=== PATIENT | female | born 1990 | race Caucasian/White ===

== ENCOUNTER 2023-09-03 07:47 | Inpatient (IN) | payer SELFPAY ==
[~2023-09-03] VITALS: Ht 167.6 cm; Wt 81.0 kg
[2023-09-03 08:32] LABS: Basophils # (auto) 0 10 ^3/uL (0-0.2); Basophils % (auto) 0.2 % (0.0-2.0); Eosinophils # (auto) 0 10 ^3/uL (0-0.8); Hemoglobin 13.6 g/dL (12.2-16.2); Lymphocytes # (auto) 0.3 10 ^3/uL (0.4-5.4); Lymphocytes % (auto) 2.9 % (10.0-50.0); Mean Corpuscular Hemoglobin 31.4 pg (28.0-32.0); Mean Corpuscular Volume 89.8 fL (80.0-100.0); Monocytes # (auto) 0.9 10 ^3/uL (0-1.3); Monocytes % (auto) 7.5 % (0.0-12.0); Neutrophils # (auto) 10.4 10 ^3/uL (1.6-8.6); Neutrophils % (auto) 89.4 % (37.0-80.0); Red Blood Cells 4.34 10^6/uL (4.0-5.20); Red Cell Distribution Width 13.2 % (11.8-14.3); White Blood Cell 11.6 10^3/uL (4.4-10.8)
[2023-09-03] MEDS ORDERED: ONDANSETRON HCL 4 MG/2 ML VIAL IV ONE (08:45)
[2023-09-03] MEDS ORDERED: SODIUM CHLORIDE 0.9% 1,000 ML IV ONE ×2 (08:45)
[2023-09-03 08:59] LABS: Alanine Aminotransferase 37 U/L (7-40); Alkaline Phosphatase 57 U/L (46-116); Anion Gap 8 (5-15); Aspartate Aminotransferase 40 U/L (13-40); Bilirubin, Total 1.7 mg/dL (0.2-1.0); Blood Urea Nitrogen 11 mg/dL (9-23); Calcium 8.8 mg/dL (8.5-10.1); Carbon Dioxide 27 mmol/L (20-30); Chloride 99 mmol/L (98-107); Glucose 117 mg/dL (74-106); Potassium 3.4 mmol/L (3.5-5.1); Sodium 134 mmol/L (136-145); Total Protein 6.8 g/dL (5.7-8.2)
[2023-09-03] MEDS ORDERED: DICYCLOMINE HCL (10MG/ML) 2 ML AMPULE IM ONE (09:45)
[2023-09-03] MEDS ORDERED: POTASSIUM EFFERVESENT TAB 25 MEQ PO ONE (10:15)
[2023-09-03] MEDS: SODIUM CHLORIDE 0.9% 1,000 ML IV SCH ×2 (10:24→18:35)
[2023-09-03] MEDS: cefTRIAXone 1GM/50ML D5W 50 ML IV SCH (10:40)
[2023-09-03 10:49] VITALS: PULSE 103; RESP 19; O2SAT 97
[2023-09-03] MEDS: DICYCLOMINE HCL 10 MG CAP PO SCH ×3 (12:44→23:14)
[2023-09-03] MEDS: ONDANSETRON HCL 4 MG/2 ML VIAL IV PRN ×2 (13:17→19:48)
[2023-09-03 13:39] LABS: Urine Bacteria NONE SEEN /hpf (None Seen); Urine Blood 3+ /uL (Negative); Urine Clarity HAZY (Clear); Urine Color Yellow (Yellow); Urine Mucus FEW (None Seen); Urine Protein, UAD 3+ (Negative); Urine Specific Gravity 1.029 (1.001-1.035); Urine WBC 105 /hpf (0 - 5); Urine pH 6.5 (5.0-8.0)
[2023-09-03] MEDS: metroNIDAZOLE 500MG/100ML 100 ML IV SCH ×2 (13:46→23:13)
[2023-09-03 14:03] LABS: Amphetamine Screen, Urine Neg (NEGATIVE); Barbiturate Scree,Urine Neg (NEGATIVE); Benzodiazephine Screen, Urine Neg (NEGATIVE); Cannabinoid Screen, Urine Neg (NEGATIVE); Cocaine Screen, Urine Neg (NEGATIVE); Opiate Scree,Urine Neg (NEGATIVE); Phencyclidine Screen, Urine Neg (NEGATIVE)
[2023-09-03 14:28] LABS: COVID19 ANTIGEN SOFIA FIA NEGATIVE (NEGATIVE); Rapid Influenza A Negative (Negative); Rapid Influenza B Negative (Negative)
[2023-09-03] MEDS ORDERED: KETOROLAC TROMETH 30 MG/ML 1ML VIAL IV STA (19:33)
[2023-09-03] MEDS: MORPHINE SULFATE INJ 2 MG/ml SYRG IV PRN (19:49)
[2023-09-03] MEDS ORDERED: ACETAMINOPHEN 325 MG TAB PO ONE (19:53)
[2023-09-03 19:57] VITALS: PULSE 108; RESP 18; O2SAT 100
[2023-09-03] MEDS ORDERED: ACETAMINOPHEN 325 MG TAB PO PRN (20:00)
[2023-09-03 21:47] VITALS: BP 106/64; PULSE 92; RESP 18; TEMP 99.8; O2SAT 98
[2023-09-03 22:00] VITALS: BP 106/64; PULSE 92; RESP 18; TEMP 99.8; O2SAT 98
[2023-09-03] MEDS ORDERED: BUPR200T2 PO (23:27)
[2023-09-04] VITALS (9 sets, daily range): BP systolic 107–123; BP diastolic 61–68; PULSE 73–90; RESP 17–18; TEMP 99.1–100.1; O2SAT 97–100
[2023-09-04] MEDS: MORPHINE SULFATE INJ 2 MG/ml SYRG IV PRN ×3 (00:37→13:15)
[2023-09-04] MEDS: ONDANSETRON HCL 4 MG/2 ML VIAL IV PRN ×3 (00:38→13:14)
[2023-09-04] MEDS: PANTOPRAZOLE 40 MG/10 ML VIAL INJ IV SCH ×2 (01:26→09:02)
[2023-09-04] MEDS: SODIUM CHLORIDE 0.9% 1,000 ML IV SCH ×2 (02:55→08:59)
[2023-09-04] MEDS: metroNIDAZOLE 500MG/100ML 100 ML IV SCH ×3 (05:46→21:30)
[2023-09-04] MEDS: DICYCLOMINE HCL 10 MG CAP PO SCH ×4 (05:46→21:28)
[2023-09-04 06:02] LABS: Alanine Aminotransferase 27 U/L (7-40); Alkaline Phosphatase 51 U/L (46-116); Anion Gap 10 (5-15); Blood Urea Nitrogen 8 mg/dL (9-23); Calcium 8.2 mg/dL (8.5-10.1); Carbon Dioxide 24 mmol/L (20-30); Chloride 101 mmol/L (98-107); Glucose 99 mg/dL (74-106); Potassium 3.3 mmol/L (3.5-5.1); Sodium 135 mmol/L (136-145)
[2023-09-04 06:03] LABS: Albumin 3.3 g/dL (3.2-4.8); Aspartate Aminotransferase 28 U/L (13-40); Bilirubin, Total 0.6 mg/dL (0.2-1.0); Total Protein 5.6 g/dL (5.7-8.2)
[2023-09-04 06:14] LABS: Basophils # (auto) 0 10 ^3/uL (0-0.2); Basophils % (auto) 0.1 % (0.0-2.0); Eosinophils # (auto) 0 10 ^3/uL (0-0.8); Hematocrit 36.5 % (36.0-46.0); Hemoglobin 12.3 g/dL (12.2-16.2); Lymphocytes # (auto) 0.7 10 ^3/uL (0.4-5.4); Lymphocytes % (auto) 6.1 % (10.0-50.0); Mean Corpuscular Hemoglobin 30.6 pg (28.0-32.0); Mean Corpuscular Hgb Conc. 33.7 g/dL (32.0-36.0); Mean Corpuscular Volume 90.7 fL (80.0-100.0); Monocytes % (auto) 8.9 % (0.0-12.0); Neutrophils # (auto) 9.9 10 ^3/uL (1.6-8.6); Neutrophils % (auto) 84.9 % (37.0-80.0); Red Blood Cells 4.02 10^6/uL (4.0-5.20); Red Cell Distribution Width 13.3 % (11.8-14.3); White Blood Cell 11.7 10^3/uL (4.4-10.8)
[2023-09-04] MEDS: cefTRIAXone 1GM/50ML D5W 50 ML IV SCH (09:01)
[2023-09-04] MEDS: TAMSULOSIN HYDROCHLORIDE 0.4 MG CAP PO SCH (17:40)
[2023-09-04] MEDS: PROMETHAZINE HCL 25 MG/ML 1ML IV PRN (17:43)
[2023-09-05] MEDS: PROMETHAZINE HCL 25 MG/ML 1ML IV PRN ×3 (00:08→22:09)
[2023-09-05] MEDS: MORPHINE SULFATE INJ 2 MG/ml SYRG IV PRN ×2 (00:13→22:10)
[2023-09-05] MEDS: SODIUM CHLORIDE 0.9% 1,000 ML IV SCH ×4 (00:19→20:35)
[2023-09-05] MEDS: metroNIDAZOLE 500MG/100ML 100 ML IV SCH ×3 (06:38→22:09)
[2023-09-05] MEDS: DICYCLOMINE HCL 10 MG CAP PO SCH ×4 (06:41→22:09)
[2023-09-05 09:00] VITALS: BP 124/69; PULSE 79; RESP 18; TEMP 98.9; O2SAT 92
[2023-09-05] MEDS: PANTOPRAZOLE 40 MG/10 ML VIAL INJ IV SCH (10:48)
[2023-09-05] MEDS: cefTRIAXone 1GM/50ML D5W 50 ML IV SCH (10:48)
[2023-09-05 13:00] VITALS: BP 122/75; PULSE 78; RESP 18; TEMP 99.3; O2SAT 96
[2023-09-05 17:00] VITALS: BP 118/72; PULSE 74; RESP 21; TEMP 99.3; O2SAT 96
[2023-09-05] MEDS: TAMSULOSIN HYDROCHLORIDE 0.4 MG CAP PO SCH (17:50)
[2023-09-05 22:00] VITALS: BP 123/74; PULSE 65; RESP 16; TEMP 99.4; O2SAT 97
[2023-09-06] MEDS: PROMETHAZINE HCL 25 MG/ML 1ML IV PRN ×2 (04:00→12:42)
[2023-09-06 05:00] VITALS: BP 126/63; PULSE 67; RESP 18; TEMP 98.6; O2SAT 96
[2023-09-06] MEDS: DICYCLOMINE HCL 10 MG CAP PO SCH ×4 (05:34→21:30)
[2023-09-06] MEDS: metroNIDAZOLE 500MG/100ML 100 ML IV SCH ×2 (05:35→15:30)
[2023-09-06] MEDS: SODIUM CHLORIDE 0.9% 1,000 ML IV SCH ×3 (05:39→21:35)
[2023-09-06 08:05] VITALS: BP 111/70; PULSE 62; RESP 18; TEMP 98.1; O2SAT 96
[2023-09-06] MEDS: KETOROLAC TROMETH 30 MG/ML 1ML VIAL IV PRN ×2 (10:01→21:33)
[2023-09-06] MEDS: cefTRIAXone 1GM/50ML D5W 50 ML IV SCH (10:01)
[2023-09-06] MEDS: PANTOPRAZOLE 40 MG/10 ML VIAL INJ IV SCH (10:01)
[2023-09-06 12:14] VITALS: BP 103/64; PULSE 63; RESP 18; TEMP 98.9; O2SAT 96
[2023-09-06 16:05] VITALS: BP 125/64; PULSE 74; RESP 18; TEMP 97.9; O2SAT 97
[2023-09-06] MEDS: TAMSULOSIN HYDROCHLORIDE 0.4 MG CAP PO SCH (18:02)
[2023-09-06 22:00] VITALS: BP 116/61; PULSE 57; RESP 16; TEMP 98.8; O2SAT 99
[2023-09-07] MEDS: SODIUM CHLORIDE 0.9% 1,000 ML IV SCH ×3 (01:58→22:35)
[2023-09-07 05:00] VITALS: BP 116/72; PULSE 62; RESP 16; TEMP 98.2; O2SAT 95
[2023-09-07] MEDS: DICYCLOMINE HCL 10 MG CAP PO SCH ×4 (06:00→21:19)
[2023-09-07 08:00] VITALS: BP 105/81; PULSE 58; RESP 16; TEMP 97.9; O2SAT 97
[2023-09-07] MEDS: cefTRIAXone 1GM/50ML D5W 50 ML IV SCH (09:09)
[2023-09-07] MEDS: PANTOPRAZOLE 40 MG/10 ML VIAL INJ IV SCH (09:09)
[2023-09-07 12:00] VITALS: BP 117/66; PULSE 59; RESP 16; TEMP 97.7; O2SAT 98
[2023-09-07] MEDS ORDERED: LIDOCAINE VISCOUS 2% 15ML UD ONE (13:00)
[2023-09-07] MEDS ORDERED: SODIUM CHLORIDE LOCK 10 ML ONE (13:00)
[2023-09-07] MEDS ORDERED: diphenhdrAMINE HCL 50 MG/1 ML VL ONE (13:00)
[2023-09-07 17:22] VITALS: PULSE 79; RESP 23; O2SAT 98
[2023-09-07] MEDS: fentaNYL CITRATE 100 MCG/2 ML VL ONE ×2 (17:26→17:29)
[2023-09-07] MEDS: MIDAZOLAM HCL 5 MG/ML-1ML VIAL ONE ×2 (17:26→17:29)
[2023-09-07 17:46] VITALS: PULSE 67; RESP 15; O2SAT 100
[2023-09-07] MEDS: TAMSULOSIN HYDROCHLORIDE 0.4 MG CAP PO SCH (18:00)
[2023-09-07 22:00] VITALS: BP 103/61; PULSE 89; RESP 18; TEMP 97.7; O2SAT 96
[2023-09-08] VITALS (8 sets, daily range): BP systolic 107–119; BP diastolic 58–75; PULSE 62–92; RESP 16–18; TEMP 98.3–99.1; O2SAT 96–98
[2023-09-08] MEDS: DICYCLOMINE HCL 10 MG CAP PO SCH ×4 (05:44→21:14)
[2023-09-08] MEDS: SODIUM CHLORIDE 0.9% 1,000 ML IV SCH ×3 (05:53→23:42)
[2023-09-08] MEDS: cefTRIAXone 1GM/50ML D5W 50 ML IV SCH (09:08)
[2023-09-08] MEDS: PANTOPRAZOLE 40 MG/10 ML VIAL INJ IV SCH (09:08)
[2023-09-08 14:02] LABS: INR 1.16 (0.9-1.15); Partial Thromboplastin Time 25.8 SEC (24.5-34.5); Prothrombin Time 12.1 sec (9.3-11.8)
[2023-09-08] MEDS: TAMSULOSIN HYDROCHLORIDE 0.4 MG CAP PO SCH ×2 (17:49→17:57)
[2023-09-09] VITALS (8 sets, daily range): BP systolic 115–121; BP diastolic 66–82; PULSE 70–78; RESP 14–22; TEMP 97.9–98.9; O2SAT 93–99
[2023-09-09] MEDS: DICYCLOMINE HCL 10 MG CAP PO SCH ×4 (05:24→21:08)
[2023-09-09] MEDS: PROMETHAZINE HCL 25 MG/ML 1ML IV PRN (08:35)
[2023-09-09] MEDS: cefTRIAXone 1GM/50ML D5W 50 ML IV SCH (08:38)
[2023-09-09] MEDS: PANTOPRAZOLE 40 MG/10 ML VIAL INJ IV SCH (08:38)
[2023-09-09] MEDS: SODIUM CHLORIDE 0.9% 1,000 ML IV SCH ×2 (08:47→13:35)
[2023-09-09] MEDS: metroNIDAZOLE 500MG/100ML 100 ML IV SCH ×2 (13:35→21:08)
[2023-09-10] VITALS (7 sets, daily range): BP systolic 108–125; BP diastolic 63–79; PULSE 63–118; RESP 13–22; TEMP 97.5–98.7; O2SAT 94–98
[2023-09-10] MEDS: SODIUM CHLORIDE 0.9% 1,000 ML IV SCH ×3 (01:48→17:15)
[2023-09-10] MEDS: metroNIDAZOLE 500MG/100ML 100 ML IV SCH ×3 (05:06→21:20)
[2023-09-10] MEDS: DICYCLOMINE HCL 10 MG CAP PO SCH ×4 (05:10→21:20)
[2023-09-10] MEDS: cefTRIAXone 1GM/50ML D5W 50 ML IV SCH (09:21)
[2023-09-10] MEDS ORDERED: FAMOTIDINE (10MG/ML) 2ML VL IV ONE ×2 (09:41→10:26)
[2023-09-10] MEDS ORDERED: SUCCINYLCHOLINE CHLORIDE 20 MG/ML 10ML VIAL IV ONE (09:44)
[2023-09-10] MEDS ORDERED: fentaNYL CITRATE 100 MCG/2 ML VL ONE ×2 (09:45→10:57)
[2023-09-10] MEDS ORDERED: HYDROmorphone HCL 2 MG/ML VL/or syr ONE (09:45)
[2023-09-10] MEDS ORDERED: DexAMETHasone SOD PHOS 10MG/1ML VIAL INJ ONE (09:46)
[2023-09-10] MEDS ORDERED: KETOROLAC TROMETH 30 MG/ML 1ML VIAL ONE (09:46)
[2023-09-10] MEDS ORDERED: ROCURONIUM 10MG/ML 10ML VIAL IV ONE (09:46)
[2023-09-10] MEDS ORDERED: MIDAZOLAM HCL 2MG/2ML 2ml VIAL (1mg/ml) ONE (09:46)
[2023-09-10] MEDS ORDERED: PROPOFOL 10 MG/ML 20 ML IV ONE (09:46)
[2023-09-10] MEDS ORDERED: GLYCOPYRROLATE 0.2 MG/ML 1ML VIAL ONE (09:46)
[2023-09-10] MEDS ORDERED: LIDOCAINE 2% (LOCAL ANESTH.) PF 5ml SDV ONE (09:46)
[2023-09-10] MEDS ORDERED: ONDANSETRON HCL 4 MG/2 ML VIAL ONE (09:46)
[2023-09-10] MEDS ORDERED: ePHEDrine SULFATE 50 MG/ML AMP ONE (09:54)
[2023-09-10] MEDS ORDERED: MEPERIDINE HCL (25 MG/ML) 1ML VIAL ONE (11:01)
[2023-09-10] MEDS ORDERED: ACETAMINOPHEN/CODEINE#3 (300/30mg) TAB PO PRN (11:30)
[2023-09-10] MEDS ORDERED: HYDROmorphone HCL 2 MG/ML VL/or syr IV PRN ×2 (11:30→12:00)
[2023-09-10] MEDS ORDERED: ONDANSETRON HCL 4 MG/2 ML VIAL IV PRN (12:00)
[2023-09-10] MEDS: ceFAZolin 1GM/50ML 50 ML IV SCH ×2 (13:44→18:25)
[2023-09-10] MEDS: D5W/SOD CHL 0.45%/KCL 20MEQ 1,000 ML IV SCH ×2 (13:45→19:50)
[2023-09-10] MEDS: PANTOPRAZOLE 40 MG/10 ML VIAL INJ IV SCH (13:45)
[2023-09-10] MEDS: PROMETHAZINE HCL 25 MG/ML 1ML IV PRN (20:14)
[2023-09-10] MEDS: MORPHINE SULFATE INJ 2 MG/ml SYRG IV PRN (20:15)
[2023-09-11] VITALS (7 sets, daily range): BP systolic 114–132; BP diastolic 65–81; PULSE 61–94; RESP 18–21; TEMP 97.8–98.1; O2SAT 94–100
[2023-09-11] MEDS: ceFAZolin 1GM/50ML 50 ML IV SCH ×5 (00:01→23:26)
[2023-09-11] MEDS ORDERED: ONDANSETRON HCL 4 MG/2 ML VIAL IV ONE (00:30)
[2023-09-11] MEDS: SODIUM CHLORIDE 0.9% 1,000 ML IV SCH ×3 (01:19→18:45)
[2023-09-11] MEDS: PROMETHAZINE HCL 25 MG/ML 1ML IV PRN ×4 (03:06→23:18)
[2023-09-11] MEDS: D5W/SOD CHL 0.45%/KCL 20MEQ 1,000 ML IV SCH ×3 (04:43→18:21)
[2023-09-11] MEDS: metroNIDAZOLE 500MG/100ML 100 ML IV SCH ×3 (05:05→21:53)
[2023-09-11 05:36] LABS: Basophils # (auto) 0 10 ^3/uL (0-0.2); Basophils % (auto) 0.2 % (0.0-2.0); Eosinophils # (auto) 0 10 ^3/uL (0-0.8); Hematocrit 35.7 % (36.0-46.0); Hemoglobin 12.2 g/dL (12.2-16.2); Lymphocytes # (auto) 0.9 10 ^3/uL (0.4-5.4); Lymphocytes % (auto) 5.5 % (10.0-50.0); Mean Corpuscular Hemoglobin 30.4 pg (28.0-32.0); Mean Corpuscular Volume 89.4 fL (80.0-100.0); Monocytes # (auto) 0.8 10 ^3/uL (0-1.3); Monocytes % (auto) 4.7 % (0.0-12.0); Neutrophils % (auto) 89.6 % (37.0-80.0); Red Blood Cells 3.99 10^6/uL (4.0-5.20); Red Cell Distribution Width 13.7 % (11.8-14.3); White Blood Cell 16.8 10^3/uL (4.4-10.8)
[2023-09-11] MEDS: DICYCLOMINE HCL 10 MG CAP PO SCH ×4 (05:51→21:53)
[2023-09-11] MEDS: cefTRIAXone 1GM/50ML D5W 50 ML IV SCH (09:47)
[2023-09-11] MEDS: PANTOPRAZOLE 40 MG/10 ML VIAL INJ IV SCH (09:47)
[2023-09-11 14:00] LABS: Alanine Aminotransferase 36 U/L (7-40); Alkaline Phosphatase 53 U/L (46-116); Anion Gap 7 (5-15); Aspartate Aminotransferase 28 U/L (13-40); Calcium 8.2 mg/dL (8.7-10.4); Carbon Dioxide 28 mmol/L (20-30); Chloride 103 mmol/L (98-107); Glucose 122 mg/dL (74-106); Potassium 3.1 mmol/L (3.5-5.1); Sodium 138 mmol/L (136-145)
[2023-09-11 14:01] LABS: Albumin 3.4 g/dL (3.2-4.8); Bilirubin, Total 0.3 mg/dL (0.2-1.0); Total Protein 6.2 g/dL (5.7-8.2)
[2023-09-11 14:09] LABS: BUN/Creatinine Ratio 7.7 (10.0-20.0); Blood Urea Nitrogen < 5 mg/dL (9-23)
[2023-09-11] MEDS: MORPHINE SULFATE INJ 2 MG/ml SYRG IV PRN (23:18)
[2023-09-12] MEDS: SODIUM CHLORIDE 0.9% 1,000 ML IV SCH ×3 (02:35→11:30)
[2023-09-12 05:00] VITALS: BP 119/70; PULSE 57; RESP 18; TEMP 98.2; O2SAT 95
[2023-09-12] MEDS: D5W/SOD CHL 0.45%/KCL 20MEQ 1,000 ML IV SCH (05:21)
[2023-09-12] MEDS: DICYCLOMINE HCL 10 MG CAP PO SCH ×5 (05:37→21:06)
[2023-09-12] MEDS: ceFAZolin 1GM/50ML 50 ML IV SCH ×3 (05:38→17:07)
[2023-09-12] MEDS: metroNIDAZOLE 500MG/100ML 100 ML IV SCH ×3 (05:38→21:06)
[2023-09-12] MEDS: PROMETHAZINE HCL 25 MG/ML 1ML IV PRN ×2 (05:38→13:50)
[2023-09-12 06:40] LABS: Basophils # (auto) 0 10 ^3/uL (0-0.2); Basophils % (auto) 0.2 % (0.0-2.0); Eosinophils # (auto) 0 10 ^3/uL (0-0.8); Eosinophils % (auto) 0.1 % (0.0-7.0); Hematocrit 34.7 % (36.0-46.0); Hemoglobin 11.8 g/dL (12.2-16.2); Lymphocytes # (auto) 1.6 10 ^3/uL (0.4-5.4); Lymphocytes % (auto) 15.4 % (10.0-50.0); Mean Corpuscular Hemoglobin 30.8 pg (28.0-32.0); Mean Corpuscular Volume 90.6 fL (80.0-100.0); Monocytes # (auto) 0.7 10 ^3/uL (0-1.3); Neutrophils % (auto) 77.3 % (37.0-80.0); Nucleated Red Blood Cells % 0.1 %; Red Blood Cells 3.83 10^6/uL (4.0-5.20); Red Cell Distribution Width 13.9 % (11.8-14.3); White Blood Cell 10.3 10^3/uL (4.4-10.8)
[2023-09-12 07:03] LABS: Alanine Aminotransferase 28 U/L (7-40); Albumin 3.3 g/dL (3.2-4.8); Alkaline Phosphatase 59 U/L (46-116); Anion Gap 6 (5-15); Aspartate Aminotransferase 26 U/L (13-40); Bilirubin, Total 0.4 mg/dL (0.2-1.0); Calcium 8.2 mg/dL (8.7-10.4); Carbon Dioxide 30 mmol/L (20-30); Chloride 105 mmol/L (98-107); Glucose 103 mg/dL (74-106); Sodium 141 mmol/L (136-145)
[2023-09-12 07:08] LABS: BUN/Creatinine Ratio 8.2 (10.0-20.0); Blood Urea Nitrogen < 5 mg/dL (9-23)
[2023-09-12 08:49] VITALS: BP 127/86; PULSE 58; RESP 18; TEMP 98; O2SAT 97
[2023-09-12] MEDS ORDERED: POTASSIUM EFFERVESENT TAB 25 MEQ PO ONE (10:30)
[2023-09-12] MEDS: PANTOPRAZOLE 40 MG/10 ML VIAL INJ IV SCH ×3 (11:30→22:00)
[2023-09-12] MEDS: cefTRIAXone 1GM/50ML D5W 50 ML IV SCH (11:31)
[2023-09-12 13:00] VITALS: BP 120/63; PULSE 62; RESP 18; TEMP 98.9; O2SAT 94
[2023-09-12] MEDS ORDERED: PROMETHAZINE HCL 25 MG/ML 1ML IV PRN (16:00)
[2023-09-12] MEDS: ONDANSETRON HCL 4 MG/2 ML VIAL IV PRN (16:32)
[2023-09-12 16:54] VITALS: BP 127/60; PULSE 68; RESP 19; TEMP 98.1; O2SAT 97
[2023-09-12 20:00] VITALS: BP 122/64; PULSE 62; RESP 16; TEMP 98.6; O2SAT 97
[2023-09-12 22:00] VITALS: BP 122/64; PULSE 62; RESP 16; TEMP 98.6; O2SAT 97
[2023-09-12] MEDS: SUCRALFATE 1 GM/10 ML ORAL SUSP PO SCH (23:30)
[2023-09-13] VITALS (7 sets, daily range): BP systolic 106–113; BP diastolic 53–76; PULSE 55–83; RESP 16–20; TEMP 97.5–98.5; O2SAT 95–97
[2023-09-13] MEDS: SODIUM CHLORIDE 0.9% 1,000 ML IV SCH ×3 (03:35→20:15)
[2023-09-13] MEDS: DICYCLOMINE HCL 10 MG CAP PO SCH ×4 (06:00→20:52)
[2023-09-13 06:14] LABS: Basophils # (auto) 0 10 ^3/uL (0-0.2); Basophils % (auto) 0.4 % (0.0-2.0); Eosinophils # (auto) 0 10 ^3/uL (0-0.8); Eosinophils % (auto) 0.4 % (0.0-7.0); Hematocrit 34.3 % (36.0-46.0); Hemoglobin 11.7 g/dL (12.2-16.2); Lymphocytes # (auto) 2.2 10 ^3/uL (0.4-5.4); Lymphocytes % (auto) 21.2 % (10.0-50.0); Mean Corpuscular Hemoglobin 30.6 pg (28.0-32.0); Mean Corpuscular Hgb Conc. 34.1 g/dL (32.0-36.0); Mean Corpuscular Volume 89.8 fL (80.0-100.0); Monocytes # (auto) 0.7 10 ^3/uL (0-1.3); Neutrophils # (auto) 7.4 10 ^3/uL (1.6-8.6); Nucleated Red Blood Cells % 0.1 %; Red Blood Cells 3.82 10^6/uL (4.0-5.20); Red Cell Distribution Width 13.8 % (11.8-14.3); White Blood Cell 10.4 10^3/uL (4.4-10.8)
[2023-09-13] MEDS: ONDANSETRON HCL 4 MG/2 ML VIAL IV PRN (06:16)
[2023-09-13] MEDS: ceFAZolin 1GM/50ML 50 ML IV SCH ×3 (06:16→13:13)
[2023-09-13] MEDS: metroNIDAZOLE 500MG/100ML 100 ML IV SCH ×3 (06:16→20:51)
[2023-09-13 06:30] LABS: Alanine Aminotransferase 23 U/L (7-40); Albumin 3.2 g/dL (3.2-4.8); Alkaline Phosphatase 56 U/L (46-116); Anion Gap 7 (5-15); Aspartate Aminotransferase 20 U/L (13-40); Blood Urea Nitrogen 5 mg/dL (9-23); Calcium 7.9 mg/dL (8.7-10.4); Carbon Dioxide 28 mmol/L (20-30); Chloride 105 mmol/L (98-107); Glucose 92 mg/dL (74-106); Potassium 2.9 mmol/L (3.5-5.1); Sodium 140 mmol/L (136-145)
[2023-09-13 06:31] LABS: Bilirubin, Total 0.5 mg/dL (0.2-1.0); Total Protein 5.8 g/dL (5.7-8.2)
[2023-09-13] MEDS: SUCRALFATE 1 GM/10 ML ORAL SUSP PO SCH ×4 (07:00→20:48)
[2023-09-13] MEDS: cefTRIAXone 1GM/50ML D5W 50 ML IV SCH (08:41)
[2023-09-13] MEDS: PANTOPRAZOLE 40 MG/10 ML VIAL INJ IV SCH ×2 (09:03→20:52)
[2023-09-13] MEDS: POTASSIUM CHL 20MEQ/100ML 100 ML IV SCH ×2 (13:10→16:01)
[2023-09-13] MEDS: POTASSIUM EFFERVESENT TAB 25 MEQ PO SCH (18:04)
[2023-09-14] MEDS: ONDANSETRON HCL 4 MG/2 ML VIAL IV PRN ×2 (03:40→08:40)
[2023-09-14] MEDS: SODIUM CHLORIDE 0.9% 1,000 ML IV SCH ×2 (04:35→13:00)
[2023-09-14 04:47] VITALS: BP 108/61; PULSE 62; RESP 21; TEMP 98.4; O2SAT 96
[2023-09-14] MEDS: metroNIDAZOLE 500MG/100ML 100 ML IV SCH ×2 (05:11→14:00)
[2023-09-14] MEDS: DICYCLOMINE HCL 10 MG CAP PO SCH ×2 (06:00→12:00)
[2023-09-14 06:09] LABS: Basophils # (auto) 0 10 ^3/uL (0-0.2); Basophils % (auto) 0.4 % (0.0-2.0); Eosinophils # (auto) 0.1 10 ^3/uL (0-0.8); Eosinophils % (auto) 0.8 % (0.0-7.0); Hematocrit 35.5 % (36.0-46.0); Hemoglobin 12.1 g/dL (12.2-16.2); Lymphocytes # (auto) 2.6 10 ^3/uL (0.4-5.4); Lymphocytes % (auto) 24.9 % (10.0-50.0); Mean Corpuscular Hemoglobin 31.1 pg (28.0-32.0); Mean Corpuscular Hgb Conc. 34.1 g/dL (32.0-36.0); Mean Corpuscular Volume 91.2 fL (80.0-100.0); Monocytes # (auto) 0.6 10 ^3/uL (0-1.3); Monocytes % (auto) 5.9 % (0.0-12.0); Red Blood Cells 3.89 10^6/uL (4.0-5.20); Red Cell Distribution Width 13.9 % (11.8-14.3); White Blood Cell 10.3 10^3/uL (4.4-10.8)
[2023-09-14 06:10] LABS: Alanine Aminotransferase 22 U/L (7-40); Alkaline Phosphatase 49 U/L (46-116); Anion Gap 8 (5-15); Aspartate Aminotransferase 17 U/L (13-40); BUN/Creatinine Ratio 9.2 (10.0-20.0); Blood Urea Nitrogen 6 mg/dL (9-23); Calcium 8.1 mg/dL (8.5-10.1); Carbon Dioxide 25 mmol/L (20-30); Chloride 109 mmol/L (98-107); Glucose 93 mg/dL (74-106); Potassium 3.3 mmol/L (3.5-5.1); Sodium 142 mmol/L (136-145)
[2023-09-14 06:11] LABS: Bilirubin, Total 0.3 mg/dL (0.2-1.0); Total Protein 5.4 g/dL (5.7-8.2)
[2023-09-14] MEDS: SUCRALFATE 1 GM/10 ML ORAL SUSP PO SCH ×2 (06:47→11:24)
[2023-09-14] MEDS: cefTRIAXone 1GM/50ML D5W 50 ML IV SCH (08:41)
[2023-09-14 09:00] VITALS: BP 114/66; PULSE 64; RESP 14; TEMP 98.2; O2SAT 94
[2023-09-14] MEDS: PANTOPRAZOLE 40 MG/10 ML VIAL INJ IV SCH (09:42)
[2023-09-14] MEDS: POTASSIUM EFFERVESENT TAB 25 MEQ PO SCH (09:45)
[2023-09-14] MEDS ORDERED: PANT40T PO (10:10)
[2023-09-14] MEDS ORDERED: HYDR-4902 PO (10:10)
[2023-09-14] MEDS ORDERED: METR-344 PO (10:10)
[2023-09-14] MEDS ORDERED: SUCR1TAB PO (10:10)
[2023-09-14] MEDS ORDERED: LEVO500T91 PO (10:10)
[2023-09-14] MEDS ORDERED: POTA-180 PO (10:13)
[2023-09-14 12:52] VITALS: BP 118/73; PULSE 66; RESP 18; TEMP 98.3; O2SAT 95
== END 2023-09-14 14:06 | disposition home or self-care (01) | DRG 854 ==
LOC: ER 07:47 → OVERFLOW 10:06 → EAST 21:43
PROVIDERS: ADMIT Nurse Practitioner Family; ATTEND Family Medicine
PROC: 0DB68ZX Excision of Stomach, Via Natural or Artificial Opening Endoscopic, Diagnostic (ICD-10-PCS; 2023-09-07)
PROC: 0DB58ZX Excision of Esophagus, Via Natural or Artificial Opening Endoscopic, Diagnostic (ICD-10-PCS; 2023-09-07)
PROC: 0DB98ZX Excision of Duodenum, Via Natural or Artificial Opening Endoscopic, Diagnostic (ICD-10-PCS; principal; 2023-09-07 17:22)
PROC: 0FT44ZZ Resection of Gallbladder, Percutaneous Endoscopic Approach (ICD-10-PCS; 2023-09-10)
DX: A41.89 Other specified sepsis (principal); E87.1 Hypo-osmolality and hyponatremia; N10 Acute pyelonephritis; K52.9 Noninfective gastroenteritis and colitis, unspecified; E86.0 Dehydration; E87.6 Hypokalemia; D69.6 Thrombocytopenia, unspecified; Z20.822 Contact with and (suspected) exposure to COVID-19; K81.1 Chronic cholecystitis; E66.9 Obesity, unspecified; K44.9 Diaphragmatic hernia without obstruction or gangrene; N20.0 Calculus of kidney; K82.8 Other specified diseases of gallbladder; K29.70 Gastritis, unspecified, without bleeding; K20.90 Esophagitis, unspecified without bleeding; K29.80 Duodenitis without bleeding; Z68.28 Body mass index [BMI] 28.0-28.9, adult; Z87.11 Personal history of peptic ulcer disease
CPT/HCPCS: 36415; 74176; 76705; 78226; 80053; 80307; 81001; 82247; 83690; 84702; 85025; 85610; 85730; 86850; 86900; 86901; 87040; 87045; 87086; 87426; 87427; 87493; 87804; 93005; 97163; C9113; G0378; J0330; J0690; J0696; J1100; J1885; J2001; J2250; J2405; J2704; J3480; J3490